=== PATIENT | male | born 1985 | race Caucasian/White ===

== ENCOUNTER 2016-10-22 09:39 | Inpatient (IN) | payer OTHER ==
--- NOTE | ~2016-10-22 | PN ---
Unit #: [id number] #: [id number] Patient: JUWAN COX [id number] [facility] [address] [place] [address] [id number] MR#: [id number] NAME: JUWAN COX ROOM: P209 Age: 31 Sex: M Admission Date: 10/22/2016 : 1985 Attending Physician: Lance Moreno M.D. Admitting Physician: Lance Moreno M.D. Primary Care Physician: Primary Care Physician Yesi RAGSDALE NOTES DATE OF SERVICE: 10/25/2016 SUBJECTIVE Mr. Cox is a 31-year-old white male with substance abuse and mood disorder, who was seen today and chart was reviewed, and case was discussed with the staff. He has been anxious, withdrawn, and rather seclusive to himself. Meanwhile, he appears to be coming out of the detox without any complications. He has been taking the medications and tolerating them fairly well with no reported side effects. MENTAL STATUS EXAMINATION Young white male who was casually dressed with fair personal hygiene, appears to be in no acute distress or discomfort. He was awake and alert on interaction with intact orientation. His mood was anxious with a congruent affect. He denies any suicidal or homicidal ideations. His insight and judgment remain slightly impaired. TREATMENT PLAN 1. We will continue him on his current medications and treatment protocol. We will monitor his response to the medications and make further adjustments as needed. 2. We will continue to follow up. Dictated by... Pancho Sanchez/timi TD: 10/25/2016 11:06 JOB #: [id number] [facility] PROGRESS NOTES Page 1 of 1 X Lance Moreno MD PROGRESS NOTE
--- NOTE | ~2016-10-22 | DS ---
Unit #: [id number] #: [id number] Patient: [facility]UWAN COX [id number] [facility] [place] [place] [address] [id number] I MR#: [id number] NAME: JUWAN COX ROOM: P209 Age: 31 Sex: M Admission Date: 10/22/2016 : 1985 Discharge Date: 10/26/2016 Attending Physician: Lance Moreno M.D. Primary Care Physician: Primary Care Physician No DISCHARGE SUMMARY IDENTIFYING DATA Mr. Cox is a 31-year-old single white male, who is a resident of [place], [place], and was self-referred to the hospital on a voluntary basis. DISCHARGE DIAGNOSES Psychiatric: Opioid dependence, moderate and acute withdrawals; opioid-induced mood disorder. Medical: None. Stressors: Moderate psychosocial stressors. HISTORY OF PRESENT ILLNESS Please see initial psychiatric evaluation for details. PAST PSYCHIATRIC HISTORY Please see initial psychiatric evaluation for details. PAST MEDICAL HISTORY Please see initial psychiatric evaluation for details. HOSPITAL COURSE The patient was admitted to the adult chemical dependency unit at [facility] and was oriented to the hospital environment. Routine p.r.n. medications were initiated, and he was started back on his home medications and detox protocol was initiated and he was closely monitored. He was taking the medications regularly and was tolerating them fairly well and was able to come out of the detox without any complications and was willing to continue treatment on an outpatient basis and as such, it was decided that he will be discharged home and will continue treatment on an outpatient basis. DISCHARGE MEDICATIONS None. DISCHARGE CONDITION Stable. PROGNOSIS Fair. Dictated by... Lance Moreno M.D. Unit #: [id number] #: [id number] Patient: JUWAN COX IAA/modl TD: 10/26/2016 07:06 JOB #: [id number] DISCHARGE SUMMARY Page 1 of 1 X Lance Moreno MD X DISCHARGE SUMMARY
--- NOTE | ~2016-10-22 | PA ---
Unit #: [id number] #: [id number] Patient: JUWAN COX [id number] [facility] [place] [address] [id number] I MR#: [id number] NAME: JUWAN COX ROOM: P209 Age: 31 Sex: M Admission Date: 10/22/2016 : 1985 Date of Assessment: 10/22/2016 Attending Physician: Lance Moreno M.D. Admitting Physician: Lance Moreno M.D. Primary Care Physician: Primary Care Physician No PSYCHIATRIC ASSESSMENT DATE OF SERVICE 10/22/2016. IDENTIFYING DATA Mr. Cox is a 31-year-old single male, who is a resident of [place], [place], and was self-referred to the hospital on a voluntary basis. CHIEF COMPLAINT "I'm addicted to heroin. I need help. I don't have any support system. I'm depressed." HISTORY OF PRESENT ILLNESS Mr. Cox is a 31-year-old white male, who is known to us from [facility] and was self-referred to the hospital and stating that he has a master's degree which he completed in 2014, but has been addicted to opioids and has not been able to function and reports poor social support system and wily hepatitis C and bottoms of his feet hurting and bleeding from walking everywhere and his ankles are swollen and reports that he has no support system right now and has not been able to function and has had significant consequences because of his addiction and does report increasing depression, anxiety, irritability, restlessness, feelings of hopelessness and helplessness, though he denies any suicidal ideations, intent, or plan. SUBSTANCE ABUSE HISTORY The patient reports extensive history of substance abuse and dependence including alcohol, cannabis, cocaine, and currently opioids, particularly heroin has been his drug of choice and reports that he has been using a gram of heroin a day. PAST PSYCHIATRIC HISTORY The patient has had history of multiple inpatient psychiatric hospitalizations at [facility], and has been diagnosed and treated for mood disorder. Review of the medical records indicate that currently he is not active in any treatment program, is not seeing a psychiatrist, not taking any psychotropic medications. PAST MEDICAL HISTORY Hepatitis C. ALLERGIES No known medication allergies. Unit #: [id number] #: [id number] Patient: JUWAN COX CURRENT MEDICATIONS None. PERSONAL AND SOCIAL HISTORY A 31-year-old white male, who reports that he is single, unemployed, and completed a master's degree in 2014 and currently, he has poor social support system and describes himself to be homeless. MENTAL STATUS EXAMINATION Young white male who was casually dressed with fair personal hygiene, appears to be in no acute distress or discomfort. He was awake and alert on interaction with intact orientation to time, place, and person. His mood was anxious and depressed with a congruent affect. His speech was slow and restricted in content. His thought processes were disorganized with some looseness of associations and suicidal ideations. His insight and judgment remain significantly impaired. DIAGNOSTIC IMPRESSION Psychiatric: Opioid dependence, moderate and acute withdrawals; opioid-induced mood disorder. Medical: None. Stressors: Moderate psychosocial stressors. TREATMENT PLAN 1. The patient has presented with history of substance abuse and mood disorder, and has been decompensating and will need inpatient hospitalization for detoxification, safety, and stabilization. We will start him on opioid detox protocol. We will closely monitor for any worsening withdrawal symptoms. 2. Supportive therapy was provided to the patient. 3. Safe, structured, and nourishing environment will be reported. ESTIMATED LENGTH OF STAY 5 to 7 days. ABILITY TO HELP SELF Limited. WILLINGNESS TO HELP SELF The patient appears to be willing to help self. STRENGTHS 1. Communicative. 2. Cooperative. PROBLEMS 1. Chronic dysphoric symptoms. 2. Poor social support system. DISCHARGE CRITERIA This will be contingent upon the patient's ability to go through detox without having any significant withdrawal symptoms as well as his ability to stay safe to himself, particularly after discharge from the hospital. Dictated by... Lance Moreno M.D. Unit #: [id number] #: [id number] Patient: JUWAN COX IAA/modl TD: 10/23/2016 07:08 JOB #: [id number] PSYCHIATRIC ASSESSMENT Page 1 of 1 X Lance Moreno MD X PSYCHIATRIC ASSESSMENT
--- NOTE | ~2016-10-22 | CO ---
Unit #: [id number] #: [id number] Patient: JUWAN HYMAN [id number] [facility] [address] [place] [address] [id number] I MR#: [id number] NAME: JUWAN HYMAN ROOM: P209 Age: 31 Sex: M Admission Date: 10/22/2016 : 1985 Attending Physician: Lance Moreno M.D. Primary Care Physician: Primary Care Physician No Consultation Date: 10/22/2016 CONSULTATION REPORT ORDERING PROVIDER Dr. Moreno. REASON FOR CONSULT Bilateral lower extremity edema and erythema into right forearm wound. SUBJECTIVE The patient reports that he got an abscess on his right wrist from shooting up. He reports that it is painful. He did go to the hospital to [place] where he was given antibiotics, but he never got it filled. He also reports that he walks everywhere and that is why his feet are red and swollen. OBJECTIVE The patient noted to have a 1-cm abscess on his right forearm that was covered with a dressing which draining a small amount of green fluid. It was hot to touch the skin surrounding it and had minimal induration. The patient refused the remainder of the physical assessment. ASSESSMENT Right forearm abscess. PLAN The patient is on Bactrim and he was instructed to let the nurses know if his feet get any worse. Dictated by... Karlene Pickering A.P.R.N. for Pancho Guerrero/timi TD: 10/22/2016 19:20 JOB #: [id number] Unit #: [id number] #: [id number] Patient: JUWAN HYMAN CONSULTATION REPORT Page 1 of 1 X KARLNEE PICKERING APRN X CONSULTATION REPORT
--- NOTE | ~2016-10-22 | HP ---
Unit #: [id number] #: [id number] Patient: JUWAN HYMAN [id number] [facility] [address] [place] [address] [id number] I MR#: [id number] NAME: JUWAN HYMAN ROOM: P209 Age: 31 Sex: M Admission Date: 10/22/2016 : 1985 Attending Physician: Lance Moreno M.D. Admitting Physician: Lance Moreno M.D. Primary Care Physician: Primary Care Physician No HISTORY AND PHYSICAL HISTORY OF PRESENT ILLNESS The patient is a 31 year old admitted to [address] [place] [address] on 10/22/2016 to detox from heroin. PAST MEDICAL HISTORY Hepatitis C PAST SURGICAL HISTORY None noted. SOCIAL HISTORY The patient is unemployed. He smokes a half of cigarettes daily. He drinks 8 to 12 beers per day and he uses one gram of heroin on a daily basis. FAMILY HISTORY Noncontributory. ALLERGIES No known drug allergies. CURRENT MEDICATIONS The patient is not on any home medications. REVIEW OF SYSTEMS The patient refused to answer questions about review of systems. PHYSICAL EXAMINATION GENERAL: The patient was awake, alert, oriented in no acute distress. He did let me look at his right arm which shows approximately one centimeter abscess. He refused the remainder of his examination. VITAL SIGNS: Temperature 98.1, heart rate 54, respirations 16, blood pressure 110/68. HEIGHT: 6'0" WEIGHT: 190 pounds. HEIGHT: 5'6". IMPRESSION 1. Psychiatric admission 2. Heroin addiction 3. Alcohol addiction 4. Right arm abscess Unit #: [id number] #: [id number] Patient: JUWAN HYMAN RECOMMENDATIONS PSYCHIATRIC: Per psychiatrist. MEDICAL: I see no contraindications to participating in facility's activities. MEDICAL PROGNOSIS Good. MEDICAL CONDITION Stable. Dictated by... Selene Matos/mattie TD: 10/23/2016 01:51 JOB #: [id number] HISTORY AND PHYSICAL Page 1 of 1 X AUSTIN EDOUARD APRN X HISTORY AND PHYSICAL
--- NOTE | ~2016-10-22 | PN ---
Unit #: [id number] #: [id number] Patient: JUWAN COX [id number] [facility] [address] [place] [address] [id number] I MR#: [id number] NAME: JUWAN COX ROOM: P209 Age: 31 Sex: M Admission Date: 10/22/2016 : 1985 Attending Physician: Lance Moreno M.D. Admitting Physician: Lance Moreno M.D. Primary Care Physician: Primary Care Physician Yesi RAGSDALE NOTES DATE OF SERVICE: 10/24/2016 SUBJECTIVE Mr. Cox is a 51-year-old white male who was seen today and chart was reviewed, and case was discussed with the staff. He has been anxious, withdrawn, though has not shown any agitation, irritability, and has been cooperative with treatment recommendation and has been taking the medications and tolerating them fairly well. MENTAL STATUS EXAMINATION Young white male who was casually dressed with fair personal hygiene, appears to be in no acute distress or discomfort. He was awake and alert with impaired attention and concentration. His mood was anxious with a congruent affect. His speech was slow and goal directed. He denies any suicidal or homicidal ideations. His insight and judgment remain slightly impaired. TREATMENT PLAN 1. We will continue him on his current medications and treatment protocol. We will monitor his response to medications and make further adjustments as needed. 2. We will continue to follow up. Dictated by... Pancho Sanchez/snehal TD: 10/24/2016 10:21 JOB #: [id number] [facility] PROGRESS NOTES Page 1 of 1 X Lance Moreno MD X PROGRESS NOTE
--- NOTE | ~2016-10-22 | PN ---
Unit #: [id number] #: [id number] Patient: JUWAN COX [id number] [facility] [address] [place] [address] [id number] I MR#: [id number] NAME: JUWAN COX ROOM: P209 Age: 31 Sex: M Admission Date: 10/22/2016 : 1985 Attending Physician: Lance Moreno M.D. Admitting Physician: Lance Moreno M.D. Primary Care Physician: Primary Care Physician Yesi RAGSDALE NOTES DATE OF SERVICE: 10/23/2016 SUBJECTIVE Mr. Cox is a 31-year-old white male with substance abuse and mood disorder, who was seen today and chart was reviewed, and case was discussed with the staff. He has been anxious, withdrawn, and seclusive to himself and describes himself to be in distress and discomfort. Meanwhile, he has been taking medications and tolerating them fairly well with no reported side effects. MENTAL STATUS EXAMINATION Young white male, who was casually dressed with fair personal hygiene, appears to be in no acute distress or discomfort. He was awake and alert on interaction with intact orientation. His mood was anxious with congruent affect. He denies any suicidal or homicidal ideations, and also denies auditory or visual hallucinations. His insight and judgment remain slightly impaired. TREATMENT PLAN 1. We will continue on his current medications and treatment protocol. We will monitor his response to the medication and make further adjustments as needed. 2. We will continue to follow up. Dictated by... Pancho Sanchez/timi TD: 10/24/2016 05:47 JOB #: [id number] Unit #: [id number] #: [id number] Patient: JUWAN COX CIARANDAMON PROGRESS NOTES Page 1 of 1 X Lance Moreno MD X PROGRESS NOTE
[2016-10-23 12:29] LABS: URINE APPEARANCE CLOUDY; URINE BILIRUBIN NEG (NEG); URINE BLOOD NEG (NEG); URINE COLOR YELLOW; URINE GLUCOSE NEG (NEG); URINE KETONE NEG (NEG); URINE LEUKOCYTE ESTERASE NEG (NEG); URINE NITRATE NEG (NEG); URINE PH 7.5 (5-8); URINE PROTEIN NEG (NEG); URINE SPECIFIC GRAVITY 1.008 (1.003-1.035); URINE UROBILINOGEN 0.2 MG/DL (NEG)
[2016-10-23 12:56] LABS: AMPHETAMINE NEG (NEG); BARBITURATES NEG (NEG); BENZODIAZEPINES POS (NEG); COCAINE POS (NEG); MARIJUANA NEG (NEG); OPIATES POS (NEG); TRICYCLIC ANTIDEPRESSANTS NEG (NEG); U METHADONE NEG (NEG)
== END 2016-10-26 10:10 | DRG 897 ==
LOC: P2S 09:39
PROVIDERS: Psychiatry & Neurology Psychiatry
PROC: HZ2ZZZZ Detoxification Services for Substance Abuse Treatment (ICD-10-PCS; principal; 2016-10-22)
DX: F11.23 Opioid dependence with withdrawal (principal); R45.851 Suicidal ideations; L02.413 Cutaneous abscess of right upper limb; F11.24 Opioid dependence with opioid-induced mood disorder; Z59.0 Homelessness; Z86.19 Personal history of other infectious and parasitic diseases; Z72.89 Other problems related to lifestyle; F17.210 Nicotine dependence, cigarettes, uncomplicated
CPT/HCPCS: 80307; 81003